=== PATIENT | male | born 1990 | race American Indian/Alaskan Native ===

== ENCOUNTER 2019-09-08 03:02 | Emergency (ER) | payer SELFPAY ==
[2019-09-08 03:11] VITALS: BP 130/79
[2019-09-08 04:45] LABS: Bilirubin,Urine NEG (Negative); Blood,Urine NEG (Negative); Color,Urine Yellow (Yellow); Urobilinogen,Urine < 2.0 mg/dL (<2.0)
[2019-09-08 04:51] LABS: WBC,Urine > 182.0 /HPF (0.0-6.0)
--- NOTE | 2019-09-08 05:23 | Emergency Department Report ---
ED Male HPI - General Chief complaint: Abdominal Pain Stated complaint: DIFFICULTY URINATING Time Seen by Provider: 09/08/19 05:15 Source: patient Mode of arrival: Ambulatory Limitations: No Limitations - History of Present Illness Initial comments: 29-year-old -English male presents to the emergency room for trouble urinating times one week. Patient denies any abdominal pain admits to penile discharge denies any hematuria denies any unprotected intercourse. Patient also denies any fever or chills nausea or vomiting. Patient reports that it feels like pressure when he tries to void. Patient has a past medical history of asthma currently takes no medications on a daily basis and has no known drug allergies. MD Complaint: penile discharge, other (difficulty urinating) Onset/Timin -: week(s) Radiation: none Severity: mild Severity scale (0 -10): 0 discharge - Related Data Sexually active: Yes Previous Rx's Medication Instructions Recorded Last Taken Type HYDROcodone/APAP 5-325 [[place] 1 each PO Q6HR PRN #8 tablet 06/28/16 Unknown Rx 5/325] Penicillin Vk [Veetids TAB] 250 mg PO QID #40 tablet 06/28/16 Unknown Rx Azithromycin [Zithromax TAB] 1,000 mg PO QDAY 1 Days #4 tablet 09/08/19 Unknown Rx DOXYCYCLINE Hyclate [Vibramycin 100 mg PO Q12HR 7 Days #14 capsule 09/08/19 Unknown Rx CAP] Allergies Allergy/AdvReac Type Severity Reaction Status Date / Time No Known Allergies Allergy Unverified 04/13/16 01:45 ED Review of Systems ROS: Stated complaint: DIFFICULTY URINATING Other details as noted in HPI Comment: All other systems reviewed and negative ED Past Medical Hx - Past Medical History Previous Medical History?: Yes - Surgical History Past Surgical History?: No - Social History Smoking Status: Never Smoker Substance Use Type: Marijuana - Medications Home Medications: Home Medications Medication Instructions Recorded Confirmed Last Taken Type HYDROcodone/APAP 5-325 [[place] 1 each PO Q6HR PRN #8 tablet 06/28/16 Unknown Rx 5/325] Penicillin Vk [Veetids TAB] 250 mg PO QID #40 tablet 06/28/16 Unknown Rx Azithromycin [Zithromax TAB] 1,000 mg PO QDAY 1 Days #4 tablet 09/08/19 Unknown Rx DOXYCYCLINE Hyclate [Vibramycin 100 mg PO Q12HR 7 Days #14 capsule 09/08/19 Unknown Rx CAP] ED Physical Exam - General Limitations: No Limitations General appearance: alert, in no apparent distress - Head Head exam: Present: atraumatic, normocephalic - Eye Eye exam: Present: normal appearance - ENT ENT exam: Present: mucous membranes moist - exam: Present: urethral discharge, circumcision. Absent: testicular tenderness, scrotal swelling - Extremities Exam Extremities exam: Present: normal inspection - Neurological Exam Neurological exam: Present: alert, oriented X3, normal gait - Psychiatric Psychiatric exam: Present: normal affect, normal mood - Skin Skin exam: Present: warm, dry, intact, normal color. Absent: rash ED Course Vital Signs 09/08/19 03:08 Temperature 97.8 F Pulse Rate 61 Respiratory 18 Rate Blood Pressure 130/79 [Right] O2 Sat by Pulse 98 Oximetry ED Medical Decision Making - Medical Decision Making 29-year-old -English male presents to the emergency room for trouble urinating times one week. Patient denies any abdominal pain admits to penile discharge denies any hematuria denies any unprotected intercourse. Patient also denies any fever or chills nausea or vomiting. Patient reports that it feels like pressure when he tries to void. Patient has a past medical history of asthma currently takes no medications on a daily basis and has no known drug allergies. Critical care attestation.: If time is entered above; I have spent that time in minutes in the direct care of this critically ill patient, excluding procedure time. ED Disposition Clinical Impression: Concern about STD in male without diagnosis Disposition: DC-01 TO HOME OR SELFCARE Is pt being admited?: No Does the pt Need Aspirin: No Condition: Stable Instructions: Sexually Transmitted Diseases (ED) Additional Instructions: Complete antibiotics as prescribed. Please inform her partner that you have been tested and treated for STD. Very important for you to follow up at the health department for full STD workup which includes syphilis HIV hepatitis herpes. Prescriptions: DOXYCYCLINE Hyclate [Vibramycin CAP] 100 mg PO Q12HR 7 Days #14 capsule Azithromycin [Zithromax TAB] 1,000 mg PO QDAY 1 Days #4 tablet Referrals: [facility] [Outside] - 3-5 Days [facility] [Outside] - 3-5 Days [facility] [Outside] - 3-5 Days
[2019-09-08] MEDS ORDERED: LIDOCAINE-MPF (1%) 10 MG/1 ML VIAL 5 ML INFILTRATI ONE (05:25)
== END 2019-09-08 05:53 | disposition home or self-care (01) ==
LOC: ED 03:02
DX: R36.9 Urethral discharge, unspecified (principal); F12.10 Cannabis abuse, uncomplicated; Z71.1 Person with feared health complaint in whom no diagnosis is made
CPT/HCPCS: 81001; 87591; 96372; 99283; J0696